=== PATIENT | male | born 1990 | race Hispanic/Latino ===

== ENCOUNTER 2019-07-25 18:10 | Emergency (ER) | payer SELFPAY ==
[2019-07-25] MEDS ORDERED: SODIUM CHLORIDE 0.9% 500 ML 500 ML IV ONE (18:33)
[2019-07-25 18:36] VITALS: BP 158/106
[2019-07-25 18:56] LABS: Basophils # (Auto) 0.1 K/mm3 (0.0-0.1); Basophils % (Auto) 0.8 % (0.0-1.8); Eosinophils # (Auto) 0.1 K/mm3 (0.0-0.4); Eosinophils % (Auto) 0.8 % (0.0-4.3); Hematocrit 48.7 % (35.5-45.6); Hemoglobin 16.7 gm/dl (11.8-15.2); Lymphocytes % (Auto) 19.9 % (13.4-35.0); Mean Corpuscular HGB Conc 34 % (32-34); Mean Corpuscular Volume 86 fl (84-94); Monocytes # (Auto) 1.2 K/mm3 (0.0-0.8); Monocytes % (Auto) 8.1 % (0.0-7.3); Platelet Count 320 K/mm3 (140-440); Red Blood Count 5.66 M/mm3 (3.65-5.03); Red Cell Distribution Width 13.2 % (13.2-15.2)
--- NOTE | 2019-07-25 19:03 | XRay Report ---
CHEST 2 VIEWS INDICATION / CLINICAL INFORMATION: possible Sepsis. COMPARISON: None available. FINDINGS: SUPPORT DEVICES: None. HEART / MEDIASTINUM: No significant abnormality. LUNGS / PLEURA: No significant pulmonary or pleural abnormality. No pneumothorax. ADDITIONAL FINDINGS: No significant additional findings. IMPRESSION: 1. No significant abnormality. Signer Name: Becca Santos MD Signed: 07/25/2019 6:58 PM Workstation Name: [id number]
[2019-07-25 19:12] LABS: INR 0.89 (0.87-1.13)
[2019-07-25 19:19] LABS: Alanine Aminotransferase 62 units/L (7-56); Albumin 4.3 g/dL (3.9-5); BUN/Creatinine Ratio 16; Blood Urea Nitrogen 14 mg/dL (9-20); Calcium 10.2 mg/dL (8.4-10.2); Hemolysis Index 12
[2019-07-25] MEDS ORDERED: VANCOMYCIN/NS 1 GM/250 ML 1 GM/250 ML BAG IV ONE (20:40)
--- NOTE | 2019-07-25 21:13 | Emergency Department Report ---
HPI - General Chief Complaint: Skin/Abscess/Foreign Body Time Seen by Provider: 07/25/19 20:30 - HPI HPI: 28-year-old male presents to the emergency department with an abscess to the upper buttock and/or pilonidal region. He says that this is a recurring issue for him and he had it drained about 5 or 6 days ago while in [place], where he lives. He is currently down here visiting and says that it "popped up again" a few days ago. He has a history of diabetes. He presents with a low- grade fever and some tachycardia and a code sepsis was called through triage. He denies any shortness of breath, sore throat, ear pain, nausea, vomiting or diarrhea. He has not taken anything for her symptoms prior to presentation today. ED Past Medical Hx - Past Medical History Previous Medical History?: Yes Hx Diabetes: Yes - Surgical History Past Surgical History?: No - Medications Home Medications: Home Medications Medication Instructions Recorded Confirmed Last Taken Type Ibuprofen [Motrin 800 MG tab] 800 mg PO Q8HR PRN #20 tablet 07/25/19 Unknown Rx Sulfamethoxazole/Trimethoprim 1 each PO BID #20 tablet 07/25/19 Unknown Rx [Bactrim DS TAB] ED Review of Systems ROS: Stated complaint: ABSCESS ON BUTTOCK/PAIN Other details as noted in HPI Comment: All other systems reviewed and negative Constitutional: fever. denies: chills Eyes: denies: eye pain, vision change ENT: denies: ear pain, throat pain Respiratory: denies: cough, shortness of breath Cardiovascular: denies: chest pain, palpitations Gastrointestinal: denies: abdominal pain, vomiting Genitourinary: denies: dysuria, discharge Musculoskeletal: denies: back pain, arthralgia Skin: lesions. denies: pruritus Neurological: denies: headache, weakness Physical Exam - Physical Exam Vital Signs: Vital Signs 07/25/19 18:31 Temperature 100.4 F H Pulse Rate 127 H Respiratory 20 Rate Blood Pressure 158/106 [Right] O2 Sat by Pulse 96 Oximetry Physical Exam: GENERAL: The patient is well-developed well-nourished. HEENT: Normocephalic. Atraumatic. Patient has moist mucous membranes. EYES: Extraocular motions are intact. NECK: Supple. Trachea is midline. CHEST/LUNGS: Clear to auscultation. There is no respiratory distress noted. HEART/CARDIOVASCULAR: Regular. There is mild tachycardia. There is no murmur. ABDOMEN: Abdomen is soft, nontender. Patient has normal bowel sounds. There is no abdominal distention. SKIN: There is an abscess to the upper buttock and pilonidal region that is fluctuant, mildly erythematous and is about 3 inches at its greatest diameter. This area is tender to palpation. NEURO: The patient is awake, alert, and oriented. The patient is cooperative. The patient has no focal neurologic deficits. Normal speech. MUSCULOSKELETAL: There is no tenderness or deformity. There is no evidence of acute injury. ED Course Vital Signs 07/25/19 18:31 Temperature 100.4 F H Pulse Rate 127 H Respiratory 20 Rate Blood Pressure 158/106 [Right] O2 Sat by Pulse 96 Oximetry - I & D Buttocks Type of Procedure: Simple Site: right buttock Blade Size: 11 I & D Procedure: betadine prep, sterile drapes applied, sterile dressing applied, no gauze wick placed (Patient refused) Progress: About 3 mL of 1% lidocaine without epinephrine was used to attempt local anesthe gerald. After this a 2 cm incision was made. Forceps were used to open up and break up loculations and there was about 5 mL of purulent discharge. There was about 3 mL of estimated blood loss. Patient tolerated the procedure well. Sterile dressing was applied. ED Medical Decision Making - Lab Data Result diagrams: 07/25/19 18:34 07/25/19 18:34 - Radiology Data Radiology results: report reviewed, image reviewed interpreted by me: Chest x-ray does not show any pleural effusions, pneumonia, pneumothorax, focal consolidation, or any other acute process. CT abdomen pelvis w con INDICATION / CLINICAL INFORMATION: Upper buttock abscess, recurrent, with fever. TECHNIQUE: Axial CT imaging of abdomen and pelvis was obtained with IV contrast. Coronal and sagittal reformatted imaging obtained and reviewed. All CT scans at this location are performed using CT dose reduction for ALARA by means of automated exposure control. COMPARISON: None available. FINDINGS: CT abdomen with contrast demonstrates normal appearance of the liver, spleen, pancreas, kidneys, and adrenal glands. Gallbladder is unremarkable. CT the pelvis with contrast demonstrates fluid-filled ill-defined mass in the subcutaneous tissues of the upper gluteal region, midline. The appearance is most suggestive of abscess. Abscess measures approximately 3.8 x 3.6 x 5.4 cm. There is mild inflammatory change in the surrounding fat. The remainder of the pelvis is unremarkable. No additional pelvic mass, free fluid, or focal inflammatory change noted. A normal appendix is present. GI tract is unremarkable. Visualized lung bases are clear. No significant osseous abnormality. IMPRESSION: 1. 5 cm ill-defined fluid collection is seen in the subcutaneous tissues in the upper buttock region, midline. The appearance is most suggestive of abscess. 2. No other significant abnormality noted. - Medical Decision Making This patient presents with a moderate-sized but or pilonidal abscess. Including today the patient says that this would be the third or fourth time it has been incised and drained in the past 6 months. He has an appointment with a general surgeon in a few weeks to attempt to have the entire abscess or cyst cleaned out and removed but he is currently working in [place] for the next 1-2 weeks for his job. The patient was originally made a cut sepsis as he had a borderline fever and tachycardia with this source of infection. There is a mild white count of 15,000 but there is no lactic acidosis. Patient was given Tylenol for the fever, morphine for his pain, and IV fluid for his tachycardia and for poss ible sepsis. He was treated with vancomycin. A CT scan with IV contrast was completed secondary to the fact that he has the vitals consistent with sepsis and he is diabetic. However the results only show a localized 5 cm abscess in the soft tissue. This was incised and drained but the patient refused packing. His repeat vitals show a resolution of the fever and tachycardia. Patient will be discharged home on antibiotics and has been given referrals for a local general surgeon here. He will return to the emergency department immediately with any worsening of his symptoms or any acute distress. - Differential Diagnosis abscess, cyst, sepsis, cellulitis Critical Care Time: No Critical care attestation.: If time is entered above; I have spent that time in minutes in the direct care of this critically ill patient, excluding procedure time. ED Disposition Clinical Impression: Abscess of buttock, right, Elevated blood pressure reading Disposition: TO HOME OR SELFCARE Is pt being admited?: No Condition: Stable Instructions: Abscess Incision and Drainage (ED), Abscess (ED) Additional Instructions: Please follow up with a primary care physician as soon as you are able to do so. Take the antibiotics as prescribed. Clean the area with soap and water and then keep it dry. Return to the emergency Department with any worsening of your symptoms or any acute distress. I am given you a referral for a local general surgeon, Dr. Serrano, in case she would like to follow up regarding your abscess while you are still in [place]. Prescriptions: Sulfamethoxazole/Trimethoprim [Bactrim DS TAB] 1 each PO BID #20 tablet Ibuprofen [Motrin 800 MG tab] 800 mg PO Q8HR PRN #20 tablet PRN Reason: Pain , Severe (7-10) Referrals: CHRISTY SERRANO MD [Staff Physician] - 3-5 Days Time of Disposition: 22:48
[2019-07-25] MEDS: ACETAMINOPHEN 325 MG TAB PO ONE (21:35)
[2019-07-25] MEDS: MORPHINE 4 MG/1 ML INJ IV ONE (21:36)
[2019-07-25] MEDS: ONDANSETRON 4 MG/2 ML INJ IV ONE (21:36)
--- NOTE | 2019-07-25 22:21 | Cat Scan Report ---
CT abdomen pelvis w con INDICATION / CLINICAL INFORMATION: Upper buttock abscess, recurrent, with fever. TECHNIQUE: Axial CT imaging of abdomen and pelvis was obtained with IV contrast. Coronal and sagittal reformatte d imaging obtained and reviewed. All CT scans at this location are performed using CT dose reduction for ALARA by means of automated exposure control. COMPARISON: None available. FINDINGS: CT abdomen with contrast demonstrates normal appearance of the liver, spleen, pancreas, kidneys, and adrenal glands. Gallbladder is unremarkable. CT the pelvis with contrast demonstrates fluid-filled ill-defined mass in the subcutaneous tissues of the upper gluteal region, midline. The appearance is most suggestive of abscess. Abscess measures ap proximately 3.8 x 3.6 x 5.4 cm. There is mild inflammatory change in the surrounding fat. The remainder of the pelvis is unremarkable. No additional pelvic mass, free fluid, or focal inflamma tory change noted. A normal appendix is present. GI tract is unremarkable. Visualized lung bases are clear. No significant osseous abnormality. IMPRESSION: 1. 5 cm ill-defined fluid collection is seen in the subcutaneous tissues in the upper buttock region, midline. The appearance is most suggestive of abscess. 2. No other significant abnormality noted. Signer Name: Becca Santos MD Signed: 07/25/2019 10:16 PM Workstation Name: [id number]
[2019-07-25] MEDS: VANCOMYCIN 2,000 MG in SODIUM CHLORIDE 0.9% 500 ML 500 ML IV ONE (22:23)
[2019-07-25] MEDS: LIDOCAINE-MPF (1%) 10 MG/1 ML VIAL 5 ML INFILTRATI ONE (23:44)
[2019-07-26] MEDS: SODIUM CHLORIDE 0.9% 1000 ML 1,000 ML IV ONE (00:37)
== END 2019-07-26 00:47 | disposition home or self-care (01) ==
LOC: ED 18:10
DX: R03.0 Elevated blood-pressure reading, without diagnosis of hypertension (principal); E11.9 Type 2 diabetes mellitus without complications; Z79.899 Other long term (current) drug therapy
CPT/HCPCS: 10060; 36415; 71046; 74177; 80053; 82140; 82805; 85025; 85610; 87040; 96365; 96366; 96375; 99284; J2270; J2405; J3370; J7030; J7040; Q9967